=== PATIENT | male | born 2000 | race Caucasian/White ===

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

== ENCOUNTER 2021-03-17 10:24 | Emergency (ER) | payer OTHER | END 2021-03-17 11:10 | disposition home or self-care (01) | LOC: FER 10:24 | DX: S01.112A Laceration without foreign body of left eyelid and periocular area, initial encounter (principal); S09.90XA Unspecified injury of head, initial encounter; W22.8XXA Striking against or struck by other objects, initial encounter; Y93.89 Activity, other specified | CPT/HCPCS: 99283 ==

== ENCOUNTER 2021-04-10 00:10 | Emergency (ER) | payer OTHER ==
[2021-04-10 00:45] LABS: BASOPHIL 0.7 % (0-2); EOSINOPHIL 1.3 % (0-5); HCT 46.5 % (42.0-52.0); HGB 15.7 g/dl (13.2-18.0); LYMPHOCYTE 53.1 % (15-48); MCH 30.8 pg (25.0-31.0); MCHC 33.8 g/dL (32.0-36.0); MCV 91.4 fL (78.0-100.0); MONOCYTE 5.7 % (0-12); MPV 11.4 fL (6.0-9.5); NRBC 0; PLT 235 K/uL (150-400); RBC 5.09 M/uL (4.70-6.00); WBC 15.3 K/uL (4.0-10.5)
[2021-04-10 00:46] LABS: NEUTROPHIL 38.8 % (41-80)
[2021-04-10 00:59] LABS: ALBUMIN 4.5 g/dL (3.4-5.0); BILIRUBIN - TOTAL 0.2 mg/dL (0.2-1.0); BUN/CREAT RATIO (CALC) 11.4 RATIO; CREATININE 1.05 mg/dL (0.67-1.17); GLOBULIN (CALCULATION) 3.5 g/dL; MAGNESIUM 1.8 mg/dL (1.8-2.4); POTASSIUM 3.1 mmol/L (3.5-5.1)
[2021-04-10 01:00] LABS: INR 1.14 (0.9-1.2); PTT 23.8 SECONDS (24.4-34.7)
== END 2021-04-10 00:59 | disposition other institution (70) ==
LOC: FER 00:10
PROVIDERS: Emergency Medicine
DX: T22.311A Burn of third degree of right forearm, initial encounter (principal); T22.312A Burn of third degree of left forearm, initial encounter; T22.30XA Burn of third degree of shoulder and upper limb, except wrist and hand, unspecified site, initial encounter; T21.21XA Burn of second degree of chest wall, initial encounter; T24.102A Burn of first degree of unspecified site of left lower limb, except ankle and foot, initial encounter; T24.101A Burn of first degree of unspecified site of right lower limb, except ankle and foot, initial encounter; X08.8XXA Exposure to other specified smoke, fire and flames, initial encounter; T20.13XA Burn of first degree of chin, initial encounter; T26.42XA Burn of left eye and adnexa, part unspecified, initial encounter; T26.41XA Burn of right eye and adnexa, part unspecified, initial encounter; T31.11 Burns involving 10-19% of body surface with 10-19% third degree burns
CPT/HCPCS: 36415; 71045; 80053; 82550; 83735; 85025; 85610; 85730; 93005; G0480; J1170; J2405